=== PATIENT | male | born 1955 | race Caucasian/White ===

== ENCOUNTER 2025-01-18 06:17 | Day surgery (SDC) | payer MEDICARE, OTHER ==
[~2025-01-18] VITALS: Ht 167.6 cm; Wt 73.8 kg
[2025-01-18] VITALS (7 sets, daily range): BP systolic 119–149; BP diastolic 69–78; TEMP 97.2–98.2; O2SAT 94–100
[~2025-01-18 06:17] MED LIST: ERGO500029 PO; GABA-284 PO; IBUP80TA PO; METF-838 PO
[2025-01-18] MEDS ORDERED: LR 1,000 ML IV SCH (06:25)
[2025-01-18] MEDS ORDERED: LIDOCAINE 1% SDV 5ML VIAL SC PRN (06:25)
[2025-01-18] MEDS ORDERED: INSULIN LISPRO (NovoLOG) PER UNIT SC PRN (06:25)
[2025-01-18] MEDS ORDERED: DEXTROSE 50% 50ML SYRINGE IV PRN ×3 (06:25→11:50)
[2025-01-18] MEDS ORDERED: GLUCAGON INJ 1MG VIAL SC PRN ×3 (06:25→11:50)
[2025-01-18] MEDS ORDERED: GLUCOSE 4 GM CHEW PO PRN ×3 (06:25→11:50)
[2025-01-18] MEDS ORDERED: MIDAZOLAM INJ 2MG/2ML VIAL As Ordered ONE (07:00)
[2025-01-18] MEDS ORDERED: fentaNYL 100 MCG/2 ML INJECTION As Ordered ONE (07:00)
[2025-01-18] MEDS ORDERED: HYDROmorphone HCL 2MG/ML 1ML VIAL As Ordered ONE (07:00)
[2025-01-18] MEDS ORDERED: dexmedeTOMIDine (4MCG/ML)200MCG/50ML BTL (PRECEDEX) As Ordered ONE (07:00)
[2025-01-18] MEDS ORDERED: LIDOCAINE 2% 100MG/5ML SDV (FOR ANES.) As Ordered ONE (07:01)
[2025-01-18] MEDS ORDERED: ROCURONIUM BROMIDE 50MG/5ML VIAL As Ordered ONE (07:01)
[2025-01-18] MEDS ORDERED: propofoL 200 MG/20 ML VIAL As Ordered ONE (07:01)
[2025-01-18] MEDS ORDERED: SUGAMMADEX SODIUM 500 MG/5 ML VIAL (BRIDION) As Ordered ONE (07:01)
[2025-01-18] MEDS ORDERED: ONDANSETRON 4MG 2ML VIAL As Ordered ONE (07:01)
[2025-01-18] MEDS ORDERED: ACETAMINOPHEN 1000MG/100ML IV BAG As Ordered ONE (07:23)
[2025-01-18] MEDS ORDERED: PERCOCET 5MG/325MG TAB PO PRN (07:25)
[2025-01-18] MEDS ORDERED: ONDANSETRON 4MG 2ML VIAL IV PRN ×2 (07:25→11:10)
[2025-01-18] MEDS ORDERED: ACETAMINOPHEN 325 MG TAB PO PRN (07:25)
[2025-01-18] MEDS ORDERED: HOME MED LIST COMPLETE! XX SCH (07:35)
[2025-01-18] MEDS ORDERED: METOCLOPRAMIDE INJ 10MG/2ML VIAL As Ordered ONE (07:44)
[2025-01-18] MEDS: INSULIN LISPRO (NovoLOG) PER UNIT SC PRN ×2 (07:51→11:59)
[2025-01-18] MEDS: HEPARIN SOD (PORCINE) 5000UNITS/ML 1ML VIAL/SYRINGE SQ ONE (07:57)
[2025-01-18] MEDS: ceFAZolin SOD 2 GM in IV 1 EA IV ONE (07:58)
[2025-01-18] MEDS ORDERED: hydrALAZINE 20MG/ML 1ML VIAL As Ordered ONE (08:51)
[2025-01-18] MEDS: INSULIN LISPRO (NovoLOG) PER UNIT As Ordered ONE (10:36)
[2025-01-18] MEDS: LIDOCAINE 1% SDV 30ML VIAL As Ordered ONE (11:05)
[2025-01-18] MEDS ORDERED: fentaNYL 100 MCG/2 ML INJECTION IV PRN (11:10)
[2025-01-18] MEDS ORDERED: oxyCODONE 5MG TAB PO PRN (11:10)
[2025-01-18] MEDS ORDERED: HYDROMORPHONE HCL 0.5 MG/ 0.5 ML SYRINGE IV PRN (11:10)
[2025-01-18 12:25] LABS: HEMATOCRIT 39.1 % (42.0-52.0); HEMOGLOBIN 13.3 g/dl (13.5-17.5); MEAN CORPUSCULAR HEMOGLOBIN 29.8 pg (27.0-33.0); MEAN CORPUSCULAR VOLUME 87.7 fl (80.0-96.0); PLATELET COUNT, AUTOMATED 190 10^3/uL (150-450); RED BLOOD COUNT 4.46 10^6/uL (4.30-6.10); WHITE BLOOD COUNT 8.9 10^3/uL (4.0-10.0)
[2025-01-18 12:52] LABS: BLOOD UREA NITROGEN 15 MG/DL (9-23); CALCIUM LEVEL 8.6 MG/DL (8.3-10.6); CARBON DIOXIDE LEVEL 26 MMOL/L (20-31); CHLORIDE LEVEL 105 MMOL/L (98-107); CREATININE FOR GFR 0.81 MG/DL (0.70-1.30); GLOMERULAR FILTRATION RATE > 60.0 (>49); GLUCOSE, FASTING 205 MG/DL (74-106); POTASSIUM SERUM 3.9 MMOL/L (3.5-5.1); SODIUM LEVEL 141 MMOL/L (136-145)
[2025-01-18] MEDS: INSULIN LISPRO (NovoLOG) PER UNIT SC SCH ×2 (13:50→21:00)
[2025-01-18] MEDS: NS (Normal Saline) 0.9% 500 ML IV SCH (13:50)
[2025-01-18] MEDS: LR 1,000 ML IV SCH (13:51)
[2025-01-18] MEDS: ceFAZolin SOD 1 GM in DEXTROSE 5% (D5W) ADV/MINI-BAG 50 ML IV SCH (15:43)
[2025-01-18] MEDS: DOCUSATE SODIUM 100MG CAPSULE PO SCH (21:02)
[2025-01-18] MEDS: PERCOCET 5MG/325MG TAB PO PRN (21:10)
[2025-01-18] MEDS: HEPARIN SOD (PORCINE) 5000UNITS/ML 1ML VIAL/SYRINGE SC SCH (21:14)
[2025-01-19] VITALS: BP 139/78; TEMP 97.7; O2SAT 94
[2025-01-19 04:00] VITALS: BP 144/80; TEMP 97.7; O2SAT 92
[2025-01-19 05:09] LABS: HEMATOCRIT 39.3 % (42.0-52.0); HEMOGLOBIN 13.2 g/dl (13.5-17.5); MEAN CORPUSCULAR HEMOGLOBIN 29.5 pg (27.0-33.0); MEAN CORPUSCULAR HGB CONC 33.6 g/dl (32.0-36.5); MEAN CORPUSCULAR VOLUME 87.9 fl (80.0-96.0); PLATELET COUNT, AUTOMATED 185 10^3/uL (150-450); RED BLOOD COUNT 4.47 10^6/uL (4.30-6.10); WHITE BLOOD COUNT 7.3 10^3/uL (4.0-10.0)
[2025-01-19 05:36] LABS: BLOOD UREA NITROGEN 8 MG/DL (9-23); CALCIUM LEVEL 8.9 MG/DL (8.3-10.6); CARBON DIOXIDE LEVEL 28 MMOL/L (20-31); CHLORIDE LEVEL 105 MMOL/L (98-107); CREATININE FOR GFR 0.86 MG/DL (0.70-1.30); GLOMERULAR FILTRATION RATE > 60.0 (>49); GLUCOSE, FASTING 165 MG/DL (74-106); POTASSIUM SERUM 4.3 MMOL/L (3.5-5.1); SODIUM LEVEL 141 MMOL/L (136-145)
[2025-01-19] MEDS ORDERED: CIPR-249 PO (07:56)
[2025-01-19] MEDS ORDERED: COLA100C5 PO (07:56)
[2025-01-19] MEDS ORDERED: PERCOCET PO (07:56)
[2025-01-19 08:00] VITALS: BP 145/83; TEMP 97.5; O2SAT 92
[2025-01-19 11:45] VITALS: BP 148/81; TEMP 97.7; O2SAT 96
== END 2025-01-19 12:49 | disposition home or self-care (01) ==
LOC: M OR 06:17 → UNDOADMIN 06:17 → M SDC 06:17 → M ED INP 06:17 → EDSTATUS 07:30 → M MSPAV 12:19 → M ED INP 12:19 → M OR 12:19 → M SDC 01-19 12:49 → UNDODISIN 01-19 12:49
PROVIDERS: ATTEND Urology
DX: C61 Malignant neoplasm of prostate (principal); E11.65 Type 2 diabetes mellitus with hyperglycemia; E78.2 Mixed hyperlipidemia; E55.9 Vitamin D deficiency, unspecified; M54.59 Other low back pain; Z79.84 Long term (current) use of oral hypoglycemic drugs
CPT/HCPCS: 36415; 55866; 80048; 85027; 86850; 86900; 86901; 88309; J0131; J0360; J0665; J0690; J1171; J1815; J2250; J2405; J2765; J3010; S2900